=== PATIENT | female | born 1935 | race Caucasian/White ===

== ENCOUNTER 2017-10-01 08:39 | Emergency (ER) | payer OTHER ==
[~2017-10-01] VITALS: Ht 152.4 cm; Wt 57.0 kg
[~2017-10-01 08:39] MED LIST: Cholesterol PO; FLOR250C PO; LEVA750T9 PO; OMEP20TA39 PO; SYNT75TA PO; ZOFR4TAB PO
[2017-10-01 08:45] VITALS: BP 168/70; PULSE 84; RESP 18; TEMP 97.5; O2SAT 100
[2017-10-01] MEDS ORDERED: OMEP20TA93 PO (08:54)
[2017-10-01] MEDS ORDERED: LEVO.075 PO (08:54)
--- NOTE | 2017-10-01 09:08 | PD ---
HPI Chief Complaint: Cold / Flu Symptoms Time Seen by Provider: 08:45 Travel History International Travel<30 days: No Contact w/Intl Traveler<30days: No Traveled to known affect area: No History of Present Illness HPI 82-year-old female complains of coughing, neck swelling, neck pain and chest pain. Patient states that his symptoms started since August 02 of this year. Patient states that the cough with intermittent dry cough. Patient has been seen by personal physician and given prescription for steroid without much relief of the cough. Patient also complained of pain and swelling left head and neck. Patient has history thyroid cancer status post thyroidectomy 2002. Patient states that she has persistent left-sided neck pain after an injury when she was younger. Patient states that she had persistent left-sided neck pain since then. Patient states the pain is worse for the past few days. Patient also noticed some swelling of left-sided neck for the past several days. Patient denies any fever chills. Patient denies any problem with swallowing. Patient complains of upper chest tightness since August 02. Patient denies any pain radiation. Patient denies any palpitation. Patient denies any palpitation. Patient denies any nausea or diaphoresis with the pain. Patient denies any history of CAD. Patient denies history hypertension, diabetes. Patient has history of hyperlipidemia. Patient is non-smoker. Patient has history of lung nodules in the past. Patient states that the lung nodules have been seen by personal physician and follow-up with chest x-ray. PFSH Past Medical History Cancer: Yes (Thyroid) High Cholesterol: Yes GERD: Yes Tetanus Vaccination: < 5 Years Influenza Vaccination: Yes ?: Not Menopausal: Yes Past Surgical History Appendectomy: Yes Hysterectomy: Yes Other Surgery: Yes (Thyroidectomy ) Social History Alcohol Use: No Tobacco Use: No Substance Use: No Allergies-Medications (Allergen,Severity, Reaction): Coded Allergies: penicillin G (Verified Allergy, Severe, Rash, [place], 10/01/17) Reported Meds & Prescriptions Reported Meds & Active Scripts Active Reported Omeprazole 20 Mg Tab 20 Mg PO DAILY Synthroid (Levothyroxine Sodium) 75 Mcg Tab 75 Mcg PO DAILY Review of Systems General / Constitutional: No: Fever Eyes: No: Visual changes HENT: Positive: Neck Pain, No: Headaches Cardiovascular: Positive: Chest Pain or Discomfort Respiratory: No: Shortness of Breath Gastrointestinal: No: Abdominal Pain Genitourinary: No: Dysuria Musculoskeletal: No: Pain Skin: No Rash Neurologic: No: Weakness Psychiatric: No: Depression Endocrine: No: Polydipsia Hematologic/Lymphatic: No: Easy Bruising Physical Exam Narrative GENERAL: Well-nourished, well-developed patient. SKIN: Focused skin assessment warm/dry. HEAD: Normocephalic. EYES: No scleral icterus. No injection or drainage. NECK: mild soft tissue prominence in the left-sided neck with tenderness on palpation. No induration. No heat noted. No redness noted. Trachea midline. CARDIOVASCULAR: Regular rate and rhythm without murmurs, gallops, or rubs. RESPIRATORY: Breath sounds equal bilaterally. No accessory muscle use. GASTROINTESTINAL: Abdomen soft, non-tender, nondistended. MUSCULOSKELETAL: No cyanosis, or edema. BACK: Nontender without obvious deformity. No CVA tenderness. Neurologic exam normal. Data Data Last Documented VS Vital Signs Date Time Temp Pulse Resp B/P (MAP) Pulse Ox O2 Delivery O2 Flow Rate FiO2 10/01/17 09:15 78 16 128/66 (86) 100 Room Air 10/01/17 08:45 97.5 Orders Orders Electrocardiogram (10/01/17 08:55) Complete Blood Count With Diff (10/01/17 08:55) Comprehensive Metabolic Panel (10/01/17 08:55) Creatine Kinase (Cpk) (10/01/17 08:55) Troponin I (10/01/17 08:55) Prothrombin Time / Inr (Pt) (10/01/17 08:55) Act Partial Throm Time (Ptt) (10/01/17 08:55) Thyroid Stimulating Hormone (10/01/17 08:55) Chest, Single Ap (10/01/17 08:55) Iv Access Insert/Monitor (10/01/17 08:55) Ecg Monitoring (10/01/17 08:55) Oximetry (10/01/17 08:55) Ct Thorax/ Chest W Iv Contrast (10/01/17 08:55) Ct Soft Tiss Neck W Iv Cont (10/01/17 08:55) Iohexol 350 Inj (Omnipaque 350 Inj) (10/01/17 10:29) Labs Laboratory Tests Test 10/01/17 09:15 White Blood Count 7.3 TH/MM3 Red Blood Count 4.68 MIL/MM3 Hemoglobin 13.5 GM/DL Hematocrit 40.8 % Mean Corpuscular Volume 87.3 FL Mean Corpuscular Hemoglobin 28.8 PG Mean Corpuscular Hemoglobin Concent 33.0 % Red Cell Distribution Width 12.8 % Platelet Count 275 TH/MM3 Mean Platelet Volume 8.2 FL Neutrophils (%) (Auto) 49.7 % Lymphocytes (%) (Auto) 40.3 % Monocytes (%) (Auto) 6.6 % Eosinophils (%) (Auto) 2.8 % Basophils (%) (Auto) 0.6 % Neutrophils # (Auto) 3.6 TH/MM3 Lymphocytes # (Auto) 3.0 TH/MM3 Monocytes # (Auto) 0.5 TH/MM3 Eosinophils # (Auto) 0.2 TH/MM3 Basophils # (Auto) 0.0 TH/MM3 CBC Comment DIFF FINAL Differential Comment Blood Urea Nitrogen 30 MG/DL Creatinine 0.93 MG/DL Random Glucose 106 MG/DL Total Protein 7.0 GM/DL Albumin 3.4 GM/DL Calcium Level 8.3 MG/DL Alkaline Phosphatase 63 U/L Aspartate Amino Transf (AST/SGOT) 39 U/L Alanine Aminotransferase (ALT/SGPT) 26 U/L Total Bilirubin 0.6 MG/DL Sodium Level 138 MEQ/L Potassium Level 4.6 MEQ/L Chloride Level 105 MEQ/L Carbon Dioxide Level 22.3 MEQ/L Anion Gap 11 MEQ/L Estimat Glomerular Filtration Rate 58 ML/MIN Total Creatine Kinase 96 U/L Troponin I LESS THAN 0.02 NG/ML Thyroid Stimulating Hormone 3rd Gen 0.698 uIU/ML MDM Medical Decision Making Medical Screen Exam Complete: Yes Emergency Medical Condition: Yes Interpretation(s) 10:47 AM. EKG shows sinus rhythm nonspecific ST-T wave change. Chest x-ray shows no acute consolidation. CT scan of the neck shows sphenoid sinus mucosal disease. CT the chest shows bronchiectasis with COPD changes. CBC within normal limits. CMP with BUN at 30. GFR 58. Cardiac enzymes are normal. Differential Diagnosis Differential diagnosis including neuralgia, lymphadenitis, abscess, musculoskeletal, angina, CT, PE, pneumothorax. Narrative Course 82-year-old female with persistent cough, left-sided neck pain and swelling, chest pain. Patient does not want any IV fluids today. Diagnosis Primary Impression: Sinusitis Qualified Codes: J01.30 - Acute sphenoidal sinusitis, unspecified Additional Impressions: Atypical chest pain Neck pain Patient Instructions: General Instructions Additional Instructions: Z-Harvinder as directed. Tylenol for pain. Encourage p.o. fluid. Follow-up with personal physician. Return if worse. Med/Other Pt SpecificInfo: Prescription(s) given Scripts Albuterol 18 GM Inh (Ventolin Hfa 18 GM Inh) 90 Mcg/Act Aer 2 PUFF INH Q4-6H Y for SHORTNESS OF BREATH, #1 INHALER 0 Refills Prov: Kale English MD 10/01/17 Azithromycin (Zithromax Z-Harvinder) 250 Mg Dspk 250 MG PO DIRECTED for Infection, #1 DSPK 0 Refills 500 MG (2 tabs) day 1, then 1 tab days 2-5. Prov: Kale English MD 10/01/17 Disposition: 01 DISCHARGE HOME Condition: Stable Kale English MD Oct 01, 2017 09:08
[2017-10-01 09:15] VITALS: BP 128/66; PULSE 78; RESP 16; O2SAT 100
[2017-10-01 09:23] LABS: AUTOMATED NEUTROPHIL # 3.6 TH/MM3 (1.8-7.7); BASOPHIL % 0.6 % (0.0-2.0); EOSINOPHIL # 0.2 TH/MM3 (0-0.4); EOSINOPHIL % 2.8 % (0.0-4.0); HEMATOCRIT 40.8 % (35.0-46.0); HEMOGLOBIN 13.5 GM/DL (11.6-15.3); LYMPH % 40.3 % (9.0-44.0); MEAN CELL VOLUME 87.3 FL (80.0-100.0); MEAN CORPUSCULAR HEMOGLOBIN 28.8 PG (27.0-34.0); MEAN PLATELET VOLUME 8.2 FL (7.0-11.0); MONO % 6.6 % (0.0-8.0); MONOCYTE # 0.5 TH/MM3 (0-0.9); NEUT % 49.7 % (16.0-70.0); PLATELET COUNT 275 TH/MM3 (150-450); RED BLOOD COUNT 4.68 MIL/MM3 (4.00-5.30); RED CELL DISTRIBUTION WIDTH 12.8 % (11.6-17.2); WHITE BLOOD COUNT 7.3 TH/MM3 (4.0-11.0)
--- NOTE | 2017-10-01 09:32 | RADRPT ---
EXAM DATE/TIME: 10/01/2017 09:14 [facility] COMPARISON: No previous studies available for comparison. INDICATIONS : Chest pain; possible syncopal episode. MEDICAL HISTORY : Carcinoma, thyroid. Gastroesophageal reflux disease. SURGICAL HISTORY : Appendectomy. Hysterectomy. Thyroidectomy. ENCOUNTER: Initial ACUITY: 1 day PAIN SCORE: 2/10 LOCATION: Bilateral chest FINDINGS: A single AP portable erect view of the chest demonstrates the lungs to be symmetrically aerated witho ut evidence of mass, infiltrate or effusion. The cardiomediastinal contours are unremarkable. [place] us structures are intact. Costicartilage calcification is present. There are tracheal calcifications. There are multiple overlying electrocardiogram leads. There is mild scoliosis. CONCLUSION: No acute disease. Darren Tuttle MD on October 01, 2017 at 9:28 Board Certified Radiologist. This report was verified electronically.
[2017-10-01 09:50] LABS: CALCIUM 8.3 MG/DL (8.5-10.1)
[2017-10-01 09:51] LABS: ALBUMIN 3.4 GM/DL (3.4-5.0); BICARBONATE 22.3 MEQ/L (21.0-32.0); BLOOD UREA NITROGEN 30 MG/DL (7-18); GLUCOSE,RANDOM 106 MG/DL (74-106)
[2017-10-01 09:54] LABS: ALT (GPT) 26 U/L (10-53); AST (GOT) 39 U/L (15-37); CREATININE 0.93 MG/DL (0.50-1.00); GLOMERULAR FILTRATION RATE 58 ML/MIN (>89)
[2017-10-01 09:55] LABS: TOTAL BILIRUBIN ADULT 0.6 MG/DL (0.2-1.0)
[2017-10-01 09:57] LABS: ALKALINE PHOSPHATASE 63 U/L (45-117)
[2017-10-01 09:59] LABS: TROPONIN I LESS THAN 0.02 NG/ML (0.02-0.05)
[2017-10-01 10:01] LABS: CHLORIDE 105 MEQ/L (98-107); SODIUM (NA) 138 MEQ/L (136-145)
[2017-10-01] MEDS ORDERED: IOHEXOL 350 MG/ML 10 ML VIAL (for RAD DIAG) IVCONTRAST ONE (10:29)
--- NOTE | 2017-10-01 10:37 | RADRPT ---
EXAM DATE/TIME: 10/01/2017 10:14 [facility] COMPARISON: No previous studies available for comparison. INDICATIONS : Dry cough with sore throat and chest pressure. IV CONTRAST: 90 cc Omnipaque 350 (iohexol) IV RADIATION DOSE: 11.27 CTDIvol (mGy) MEDICAL HISTORY : Hypercholesterolemia. Gastroesophageal reflux disease. Carcinoma, thyroid. SURGICAL HISTORY : Thyroidectomy. Appendectomy.Hysterectomy. ENCOUNTER: Initial ACUITY: 2 months PAIN SCALE: 4/10 LOCATION: neck TECHNIQUE: Volumetric scanning of the neck was performed. Using automated exposure control and adjustment of th e mA and/or kV according to patient size, radiation dose was kept as low as reasonably achievable to obtain optimal diagnostic quality images. DICOM format image data is available electronically for r eview and comparison. FINDINGS: There is mucosal disease present in the left sphenoid sinus. NASOPHARYNX: The nasopharyngeal airway has a normal configuration. No mucosal thickening or mass is seen. OROPHARYNX: The intrinsic muscles of the tongue are symmetric. The tonsillar pillars are intact. The prevertebr al soft tissues are not thickened. LARYNX: The supraglottic, glottic, and infraglottic structures are intact. PARAPHARYNGEAL: The parapharyngeal space is intact. SALIVARY GLANDS: The parotid and submandibular glands are intact. LYMPH NODES: No enlarged or necrotic-appearing nodes. THYROID: Homogeneous enhancement without evidence of nodule. BONES: Unremarkable. CONCLUSION: Sphenoid sinus mucosal disease. Allan Pettit MD on October 01, 2017 at 10:29 Board Certified Radiologist. This report was verified electronically.
--- NOTE | 2017-10-01 10:41 | RADRPT ---
EXAM DATE/TIME: 10/01/2017 10:18 [facility] COMPARISON: No previous studies available for comparison. INDICATIONS : Dry cough with sore throat and chest pressure. IV CONTRAST: 90 cc Omnipaque 350 (iohexol) IV ; Cumulative dose for multiple exams. RADIATION DOSE: 6.40 CTDIvol (mGy) MEDICAL HISTORY : Hypercholesterolemia. Gastroesophageal reflux disease. Carcinoma, thyroid. SURGICAL HISTORY : Appendectomy. Hysterectomy.Thyroidectomy. ENCOUNTER: Initial ACUITY: 2 months PAIN SCALE: 4/10 LOCATION: chest TECHNIQUE: Volumetric scanning of the chest was performed. Using automated exposure control and adjustment of the mA and/or kV according to patient size, radiation dose was kept as low as reasonab ly achievable to obtain optimal diagnostic quality images. DICOM format image data is available chris ctronically for review and comparison. Follow-up recommendations for detected pulmonary nodules are based at a minimum on nodule size and pa tient risk factors according to Fleischner Society Guidelines. FINDINGS: LUNGS: Minimal bronchiectasis withmild peribronchial fibrosis is identified in the lingula and ri ght lower lobe. Lungs are otherwise clear but hyperinflated. There are no suspicious nodular densitie s or consolidating airspace disease. PLEURA: There is no pleural thickening or pleural effusion. MEDIASTINUM: The heart and great vessels demonstrate no acute abnormality. There is no mediastin al or hilar lymphadenopathy. AXILLAE: Within normal limits. No lymphadenopathy. SKELETAL: Within normal limits for patient age. MISCELLANEOUS: The visualized upper abdominal organs demonstrate no acute abnormality. The liver is hypodense. CONCLUSION: 1. Mild subsegmental bronchiectasis in the lingula and right lower lobe. 2. Pulmonary hyperinflation characteristic of COPD. 3. No evidence of acute cardiopulmonary process. 4. Hypodense liver characteristic of steatosis Eric Mckeon MD on October 01, 2017 at 10:31 Board Certified Radiologist. This report was verified electronically.
[2017-10-01 10:55] VITALS: BP 137/57; PULSE 70; RESP 14; O2SAT 99
[2017-10-01] MEDS ORDERED: ZITHTAB PO (10:59)
[2017-10-01] MEDS ORDERED: VENTAER INH (11:00)
[2017-10-01 11:16] LABS: PROTHROMBIN TIME - PATIENT 10.3 SEC (9.8-11.6)
--- NOTE | 2017-10-02 00:07 | EKG ---
Date Performed: 10/01/2017 Time Performed: 08:46:53 PTAGE: 82 years EKG: Sinus rhythm MODERATE ST DEPRESSION ABNORMAL ECG NO PREVIOUS TRACING DOCTOR: Jefry Ang Interpretating Date/Time 10/02/2017 00:00:57
== END 2017-10-01 11:10 | disposition home or self-care (01) ==
LOC: PHED 08:39
DX: J32.3 Chronic sphenoidal sinusitis (principal); R07.89 Other chest pain; M54.2 Cervicalgia; J44.9 Chronic obstructive pulmonary disease, unspecified; E78.00 Pure hypercholesterolemia, unspecified; K21.9 Gastro-esophageal reflux disease without esophagitis; Z85.850 Personal history of malignant neoplasm of thyroid; Z88.0 Allergy status to penicillin; Z79.899 Other long term (current) drug therapy; R94.31 Abnormal electrocardiogram [ECG] [EKG]
CPT/HCPCS: 70491; 71045; 71260; 80053; 82550; 84443; 84484; 85025; 85610; 85730; 93005; 99285; Q9967